=== PATIENT | female | born 1965 | race Native Hawaiian/Other Pacific Islander ===

== ENCOUNTER 2018-10-08 12:47 | Emergency (ER) | payer BC, OTHER ==
[~2018-10-08] VITALS: Ht 157.5 cm; Wt 78.5 kg
[~2018-10-08 12:47] MED LIST: METO-357 PO; [UNRECOGNIZED DRUG - OTHER] PO
[2018-10-08] MEDS ORDERED: METOCLOPRAMIDE HCL 10 MG/2 ML VIAL IV ONE (13:45)
[2018-10-08] MEDS ORDERED: IV NORMAL SALINE 1000 ML BAG IV ONE ×2 (13:45→15:30)
[2018-10-08] MEDS ORDERED: METOCLOPRAMIDE HCL 10 MG/2 ML VIAL ONE (13:54)
--- NOTE | 2018-10-08 14:39 | NUR ---
Patient is resting comfortably on gurney with eyes closed. Comfort & safety measures maintained.
[2018-10-08] MEDS ORDERED: KETOROLAC TROMETHAMINE 15 MG INJ ONE (15:27)
[2018-10-08] MEDS ORDERED: KETOROLAC TROMETHAMINE 15 MG INJ IVP ONE (15:30)
--- NOTE | 2018-10-08 16:35 | NUR ---
IV removed. Catheter intact and site benign. Pressure and 4x4 gauze applied to site. No bleeding noted. Patient discharged to home in stable conditon & steady gait. Written and verbal after care instructions given to patient. Patient verbalizes understanding & compliance of instructions.
== END 2018-10-08 17:00 | disposition home or self-care (01) ==
LOC: ER 12:47
DX: G43.909 Migraine, unspecified, not intractable, without status migrainosus (principal); R42 Dizziness and giddiness; I10 Essential (primary) hypertension; G89.29 Other chronic pain; M54.9 Dorsalgia, unspecified; Z88.6 Allergy status to analgesic agent; Z79.899 Other long term (current) drug therapy
CPT/HCPCS: 96361 ×2; 96374; 96375; 99283; J1885; J2765; A4663; J7030